=== PATIENT | female | born 1995 | race Caucasian/White ===

== ENCOUNTER 2018-01-15 13:32 | Inpatient (IN) ==
[2018-01-15] MEDS ORDERED: Naloxone 0.4 MG/ML INJ IVP PRN (13:50)
[2018-01-15] MEDS ORDERED: Ondansetron 4 MG/2 ML VIAL IVP PRN (13:50)
[2018-01-15] MEDS ORDERED: Famotidine 20 MG/2 ML VIAL IVP PRN (13:50)
[2018-01-15] MEDS ORDERED: *HR* Nalbuphine 10 MG/ML AMPUL IVP PRN (13:50)
[2018-01-15] MEDS ORDERED: Ringers Solution, Lactated 1,000 ML IVC SCH (14:00)
--- NOTE | 2018-01-15 14:09 | OB/GYN History & Physical ---
Date of Encounter: 01/15/18 Time of Encounter: 14:06 Assessment and Plan (1) 39 weeks gestation of Current visit: Yes Status: Acute (2) Gestational hypertension affecting first Current visit: Yes Status: Acute Due to the patient's gestational age we will proceed with induction of labor. PIH labs drawn and pending. Patient may have snack before beginning induction then will transition to clear liquids only Cytotec 50 g by mouth Nubain and epidural as desired Anticipate History of Present Illness Chief complaint: gestational hypertension HPI: Ms. Cedeno is a 23 year old female 39+4 weeks gestation presents to labor and delivery from the office with elevated blood pressures. Patient reports decreased movement, denies contractions, vaginal bleeding, headache or visual changes. Uncomplicated course care with Dr. Gay. Labs: B+, rubella and varicella immune, GBS negative, all other serologies negative Past Med Surg Social Fam HX - Past Medical History Medical history: non-contributory Psychiatric history: no psych history - Social History Smoking Status: Current every day smoker Smokeless Tobacco Status: No Alcohol use: none Drug use: none Obstetrical History - Pregnancies : 1 Para: 0 Term: 0 : 0 Ab's: 0 Livin Medications and Allergies Amoxicillin 875 mg PO BID #20 tablet 08/28/17 [Rx] Benzonatate [Tessalon] 200 mg PO TID PRN #30 capsule 08/28/17 [Rx] 3 Allergy/AdvReac Type Severity Reaction Status Date / Time No Known Allergies Allergy Verified 08/28/17 12:27 Exam - Constitutional Constitutional: well developed, well nourished, no acute distress, average body habitus - Neck Neck exam: full ROM - Lungs Respiratory exam: CTAB - Cardiovascular Cardiovascular exam: RRR - Abdomen Abdomen: Present: gravid, non tender - Extremities Extremities exam: normal capillary refill, normal inspection Deep Tendon Reflex Grade: 3+ Normal But Brisk - Cervix Dilation: 3 Effacement: 80 Station: -2 - Uterus Uterus exam: Present: normal size, normal contour Results All other labs normal. - VTE Reasons for not Prescribing Prophylaxis: Treatment not Indicated - Low risk for VTE
[2018-01-15 14:39] LABS: Basophils % 0.3 %; Eosinophils # 0.1 K/mcL (0.0-0.6); Eosinophils % 0.6 %; Hematocrit 33.6 % (35.3-44.9); Hemoglobin 10.7 g/dL (11.5-15.4); Lymphocytes # 2.2 K/mcL (0.6-4.6); Lymphocytes % 17.6 %; Mean Corpuscular HGB Conc 31.8 g/dL (31.6-35.5); Mean Corpuscular Hemoglobin 23.3 pg (28.0-33.3); Mean Corpuscular Volume 73.2 fL (83.0-100.0); Mean Platelet Volume 12.2 fL (9.4-12.4); Monocytes % 7.9 %; Neutrophils # 9.1 K/mcL (1.6-8.9); Platelet Count 305 K/mcL (140-400); Red Blood Count 4.59 M/mcL (3.82-4.97); Red Cell Distribution Width 15.2 % (11.5-14.5); Segmented Neutrophils % 72.6 %
[2018-01-15 14:48] LABS: Alanine Aminotransferase 8 Units/L (7-52); Aspartate Amino Transferase 15 Units/L (13-39); BUN/Creatinine Ratio 12 (6-26); Blood Urea Nitrogen 7 mg/dL (6-20); Lactate Dehydrogenase 142 Units/L (140-271); Uric Acid 6.1 mg/dL (2.3-7.6); eGFR For African Americans > 60 (> 60); eGFR For Non-African Americans > 60 (> 60)
[2018-01-15 15:16] LABS: Protein/Creatinine Ratio,Urine 0.14 mg/mg (0.00-0.20)
[2018-01-15 15:43] LABS: Amphetamine Screen,Urine Negative ng/mL (Cutoff=1000); Barbiturate Screen,Urine Negative ng/mL (Cutoff=200); Benzodiazepines Screen,Urine Negative ng/mL (Cutoff=200); Cannabinoid Screen,Urine Negative ng/mL (Cutoff = 50); Cocaine Screen,Urine Negative ng/mL (Cutoff= 300); Opiate Screen,Urine Negative ng/mL (Cutoff=300); Phencyclidine Screen,Urine Negative ng/mL (Cutoff=25)
[2018-01-15] MEDS ORDERED: miSOPROStol 25 MCG TABLET PO PRN (16:01)
[2018-01-15] MEDS ORDERED: Epidural Premix (fent/bupiv) 110 ML EP SCH (20:45)
[2018-01-15] MEDS ORDERED: Epidural Premix (fent/bupiv) 110 ML EP ONE (20:49)
--- NOTE | 2018-01-15 21:25 | Anesthesia Evaluation PreOp ---
Date of Encounter: 01/15/18 Time of Encounter: 20:20 - Past History Planned Operation: le Cardiac History: Denies any Significant Hx Pulmonary History: Denies Any Significant HX SOFTWARE APPLICATION TESTER History: Denies Any Significant HX Other Medical History: Denies Any Significant HX Anesthesia History: No Prior Anesthetic Complications : Yes Test: Positive Alcohol Use: none Drug use: none Medications and Allergies Amoxicillin 875 mg PO BID #20 tablet 08/28/17 [Rx] Benzonatate [Tessalon] 200 mg PO TID PRN #30 capsule 08/28/17 [Rx] 3 Allergy/AdvReac Type Severity Reaction Status Date / Time No Known Allergies Allergy Verified 08/28/17 12:27 - Meds/Allergy Pre-op Review Medications Reviewed: Yes Allergies Reviewed: Yes Beta Blockers on Current Med List: No Anesthesia Results - Labs 01/15/18 13:53 01/15/18 13:53 Anesthesia Exam Height: 62 Weight: 70 NPO (# of Hours): mn Pain Scale: 0 - HEENT Pupil (Motor): Pupils equal Mallampati: II Teeth: Normal Oral Opening: Greater than 3 - SOFTWARE APPLICATION TESTER LOC: Oriented SOFTWARE APPLICATION TESTER Motor: Normal RUE, Normal LUE, Normal RLE, Normal LLE, Normal Face SOFTWARE APPLICATION TESTER Sensory: Normal: RUE, LUE, RLE, LLE, Face - Cardiac Rhythm: Regular Murmur: None JVD: No Carotid Bruit: No - Pulmonary Breath Sounds: bilateral Clear Respiratory Effort: Symmetrical Anesthesia Assess/Plan ASA Score: 2 Modified Homer Scale for Level of Consciousness: Cooperative, oriented, and tranquil Anesthetic Plan: Regional Autologous Blood: No
--- NOTE | 2018-01-15 21:27 | Anesthesia Procedures ---
Date of Encounter: 01/15/18 Time of Encounter: 20:20 Procedures: Anesthesia - Epidural/Spinal Patient ID/Chart reviewed: Yes Patient examined: Yes OB Eval: Gestational age: 39.4 OB Eval: : 1 OB Eval: Hx Para: 0 OB Eval: Dilated at (cm): 5 OB Eval: Contractions: Non-stressed pattern Consent Obtained: Yes Supplemental Oxygen: None/Room Air Site Prep: Aseptic Technique, Sterile prep and drape, Povidone-Iodine 1% Patient position: upright Amount of Local Anesthetic used: 3 Touhy Needle Gauge: 18 Touhy Needle Depth (cm): 8 Catheter Depth at Skin (cm): 10 Test Dose (1.5% Lido + Epi): Volume given (mls): 3 Test Dose Result: Negative Infusion Rate (mls/hr): [address]: Tegaderm, Tape Interspace Used: L4-L5 Loss of Resistance (DANO): Yes Blood: No CSF: No Paresthesia: No Vitals + FHT's: stable throughout see nursing notes
--- NOTE | 2018-01-16 01:39 | OB/GYN Procedure Note ---
Delivery - Delivery Date: 01/16/18 Provider: Dax Funez Intrapartum events: none Delivery induction: misoprostol Delivery monitor: external FHT, external uterine Anesthesia: epidural Estimated Blood Loss: 200 - (s) Infant A Infant Delivery Date: 01/16/18 Infant Delivery Time: 01:06 Presentation: vertex Position: JERE Gender: Male Viability: Viable Weight Gram: 3.295 kg at 1 minute: 9 at 5 mins: 9 Shoulder Dystocia: not encountered Specimens collected: cord blood Cord: 3 umbilical vessels - Repair Episiotomy: none Laceration Description: Periurethral, Perineal - 1st Degree - Complications Delivery complications: none - Disposition Mom disposition: stable in LDR disposition: stable in LDR - Comments Comments: Pt s/p of liveborn male without incident. Spontaneous delivery of normal placenta with 3vc. 1st degree laceration and right periurethral tear repaired under epidural anesthesia. EBL 200 cc. Mother and recovered in LDR.
[2018-01-16] MEDS ORDERED: Measles/Mumps/Rubella Vacc 0.5 ML VIAL SQ PRN (02:03)
[2018-01-16] MEDS ORDERED: Rho Immune Globulin 1,500 UNIT SYRINGE IM PRN (02:03)
[2018-01-16] MEDS ORDERED: Oxytocin 20 units/ LR 1000 mL 20 UNIT/1,000 ML BAG IVC SCH (02:03)
[2018-01-16 04:50] LABS: Basophils % 0.2 %; Hematocrit 30.9 % (35.3-44.9); Hemoglobin 9.8 g/dL (11.5-15.4); Immature Granulocytes % 1.2 % (0-4); Lymphocytes # 1.9 K/mcL (0.6-4.6); Mean Corpuscular HGB Conc 31.7 g/dL (31.6-35.5); Mean Corpuscular Hemoglobin 23.6 pg (28.0-33.3); Mean Corpuscular Volume 74.5 fL (83.0-100.0); Mean Platelet Volume 11.9 fL (9.4-12.4); Monocytes # 2.1 K/mcL (0.0-1.3); Monocytes % 8.6 %; Neutrophils # 19.7 K/mcL (1.6-8.9); Platelet Count 262 K/mcL (140-400); Red Blood Count 4.15 M/mcL (3.82-4.97); Red Cell Distribution Width 15.1 % (11.5-14.5)
[2018-01-16 04:58] LABS: Basophils # 0.1 K/mcL (0.0-0.2)
[2018-01-16] MEDS: Prenatal Vit/FA 1 EACH TABLET PO SCH (07:48)
[2018-01-16] MEDS: Acetaminophen 325 MG TABLET PO PRN ×3 (07:48→20:00)
[2018-01-17] MEDS: Acetaminophen 325 MG TABLET PO PRN (06:19)
[2018-01-17 07:58] VITALS: BP 125/78
--- NOTE | 2018-01-17 09:10 | Discharge Summary ---
Date of Encounter: 01/17/18 Time of Encounter: 09:07 - Discharge Diagnosis (1) Gestational hypertension affecting first Priority: Primary Status: Acute Comments: BP stable in PP. (2) Vaginal delivery Priority: Primary Status: Acute Comments: Pt states feels well. Meeting all milestones. Desires discharge. (3) anemia Priority: Secondary Status: Acute - Discharge Medications Prescriptions: Docusate [Colace] 100 mg PO BID #60 capsule Ferrous Sulfate 325 mg PO DAILY #60 tablet Home Medications: Benzonatate [Tessalon] 200 mg PO TID PRN #30 capsule 08/28/17 [Rx] Acetaminophen [Tylenol] 650 mg PO Q6HR PRN tablet 01/17/18 [Rx] Breast Pump [BREAST PUMP] 1 each .ROUTE AD #1 each 01/17/18 [Rx] Docusate [Colace] 100 mg PO BID #60 capsule 01/17/18 [Rx] Ferrous Sulfate 325 mg PO DAILY #60 tablet 01/17/18 [Rx] Ibuprofen [Motrin] 600 mg PO Q6HR PRN #60 tab 01/17/18 [Rx] Vit/FA 1 each PO DAILY #0 tablet 01/17/18 [Rx] Allergies/Adverse Reactions: 3 Allergy/AdvReac Type Severity Reaction Status Date / Time No Known Allergies Allergy Verified 08/28/17 12:27 Data Procedures and tests throughout hospitalization: Laboratory Tests 01/15/18 01/15/18 01/15/18 13:53 13:53 14:30 WBC 12.6 H RBC 4.59 Hgb 10.7 L Hct 33.6 L MCV 73.2 L MCH 23.3 L MCHC 31.8 RDW 15.2 H Plt Count 305 MPV 12.2 Immature Gran % 1.0 Seg Neutrophils % 72.6 Lymphocytes % 17.6 Monocytes % 7.9 Eosinophils % 0.6 Basophils % 0.3 Neutrophils # 9.1 H Lymphocytes # 2.2 Monocytes # 1.0 Eosinophils # 0.1 Basophils # 0.0 BUN 7 Creatinine 0.59 L Est GFR ( Amer) > 60 Est GFR (Non-Af Amer) > 60 BUN/Creatinine Ratio 12 Uric Acid 6.1 AST 15 ALT 8 Lactate Dehydrogenase 142 Urine Creatinine Protein/Creatinin Ratio Urine Total Protein Urine Opiates Screen Negative Ur Barbiturates Screen Negative Ur Phencyclidine Scrn Negative Ur Amphetamines Screen Negative U Benzodiazepines Scrn Negative Urine Cocaine Screen Negative U Marijuana (THC) Screen Negative 01/15/18 01/16/18 14:30 04:12 WBC 24.0 H D RBC 4.15 Hgb 9.8 L Hct 30.9 L MCV 74.5 L MCH 23.6 L MCHC 31.7 RDW 15.1 H Plt Count 262 MPV 11.9 Immature Gran % 1.2 Seg Neutrophils % 82.0 Lymphocytes % 8.0 Monocytes % 8.6 Eosinophils % 0.0 Basophils % 0.2 Neutrophils # 19.7 H Lymphocytes # 1.9 Monocytes # 2.1 H Eosinophils # 0.0 Basophils # 0.1 BUN Creatinine Est GFR ( Amer) Est GFR (Non-Af Amer) BUN/Creatinine Ratio Uric Acid AST ALT Lactate Dehydrogenase Urine Creatinine 348 Protein/Creatinin Ratio 0.14 Urine Total Protein 50 H Urine Opiates Screen Ur Barbiturates Screen Ur Phencyclidine Scrn Ur Amphetamines Screen U Benzodiazepines Scrn Urine Cocaine Screen U Marijuana (THC) Screen Date of admission: 01/15/18 13:32 Primary care physician: PCP NONE Consults: 01/16/18 02:03 Consult to Linting Machine Operator [CONS] Routine Comment: Vaginal delivery, consult needed Discharging clinician: Karime Hilliard Anticipated date of discharge: 01/17/18 - Patient Status Disposition: Home, Self-Care Condition: Good Functional capacity at discharge: independent ambulation Overall status at discharge: patient is back to baseline - Discharge Instructions Instructions: Anemia (GEN) Follow Up With: NONE,PCP [Primary Care Provider] - - Diet and Activity Activity: resume usual activities as tolerated Diet: regular diet Hospital Course Reason for admission: induction of labor, IUP at term Delivery: Episiotomy: none Laceration: 1st degree Other procedures: none complications: none Discharge diagnosis: IUP at term delivered [place] baby: male Hospital course: Delivery - Delivery Date: 01/16/18 Provider: Dax Funez Intrapartum events: none Delivery induction: misoprostol Delivery monitor: external FHT, external uterine Anesthesia: epidural Estimated Blood Loss: 200 - (s) A Infant Delivery Date: 01/16/18 Infant Delivery Time: 01:06 Presentation: vertex Position: JERE Gender: Male Viability: Viable Weight Gram: 3.295 kg at 1 minute: 9 at 5 mins: 9 Shoulder Dystocia: not encountered Specimens collected: cord blood Cord: 3 umbilical vessels - Repair Episiotomy: none Laceration Description: Periurethral, Perineal - 1st Degree - Complications Delivery complications: none - Disposition Mom disposition: stable in PP and appropriate for discharge Time Attestation: Total time spent providing and/or coordinating discharge services: Time Spent: Less than 30 minutes Exam - Constitutional Vitals: Temp Pulse Resp BP Pulse Ox 98.2 F 86 18 125/78 97 01/17/18 07:56 01/17/18 07:56 01/17/18 07:56 01/17/18 07:56 01/16/18 19:35 General appearance IM: severe distress - Respiratory Respiratory exam: Present: CTAB - Cardiovascular Cardiovascular exam IM: Present: RRR - GI/Abdominal GI/Abdominal exam IM: soft - Uterine Tone: Firm Uterus Position: At Umbilicus - Extremities Exam Extremities exam IM: Present: normal capillary refill, normal inspection - Neurological Exam Neurological exam: normal gait, oriented X3 - Psychiatric Additional comments: reports good mood
[2018-01-17] MEDS: Prenatal Vit/FA 1 EACH TABLET PO SCH (09:59)
== END 2018-01-17 11:50 | disposition home or self-care (01) | DRG 775 ==
LOC: 1NENULAB → OBSVTOIN 13:32 → 1NENUOBS 01-16 04:00
PROVIDERS: ADMIT Obstetrics & Gynecology; ATTEND Obstetrics & Gynecology